=== PATIENT | male | born 1980 | race Caucasian/White ===

== ENCOUNTER 2019-03-22 00:12 | Emergency (ER) | payer SELFPAY ==
[~2019-03-22] VITALS: Ht 175.3 cm; Wt 95.2 kg
[~2019-03-22 00:12] MED LIST: FLOMAX0.4 MG PO; LEVAQUIN750 MG PO; NORCO 5-325 TA1 EACH PO; PERCOCET 5-3251 EACH PO
[2019-03-22] MEDS ORDERED: NORCO 5-325 TA1 EACH PO (00:42)
== END 2019-03-22 01:00 | disposition home or self-care (01) ==
LOC: ED 00:12
DX: H16.133 Photokeratitis, bilateral (principal)
CPT/HCPCS: 99283

== ENCOUNTER 2021-04-11 22:29 | Emergency (ER) | payer OTHER ==
[~2021-04-11] VITALS: Ht 175.3 cm; Wt 95.2 kg
[2021-04-12] MEDS ORDERED: DOXYCYCLINE HY100 MG PO (00:44)
[2021-04-12] MEDS ORDERED: HYDROCODON-ACE1 EA10 PO (00:44)
== END 2021-04-12 01:16 | disposition home or self-care (01) ==
LOC: ED 22:29
DX: T81.41XA Infection following a procedure, superficial incisional surgical site, initial encounter (principal); L08.9 Local infection of the skin and subcutaneous tissue, unspecified
CPT/HCPCS: 80053; 85025; 87070; 87077; 87186; 87205; 96365; 96375; 99283-25; J0696; J1170; J2405

== ENCOUNTER 2021-08-02 09:31 | Emergency (ER) | payer OTHER ==
[~2021-08-02] VITALS: Ht 175.3 cm; Wt 80.7 kg
[~2021-08-02 09:31] MED LIST changes: +DOXYCYCLINE HY100 MG PO; +HYDROCODON-ACE1 EA10 PO
[2021-08-02] MEDS ORDERED: CENTANY30 GM TOP (10:01)
[2021-08-02] MEDS ORDERED: BACTRIM DS TAB1 EACH PO (10:01)
== END 2021-08-02 10:08 | disposition home or self-care (01) ==
LOC: ED 09:31
DX: L73.9 Follicular disorder, unspecified (principal); Z79.899 Other long term (current) drug therapy
CPT/HCPCS: 99283

== ENCOUNTER 2021-10-30 03:16 | Emergency (ER) | payer OTHER ==
[~2021-10-30] VITALS: Ht 175.3 cm; Wt 80.7 kg
[~2021-10-30 03:16] MED LIST changes: +BACTRIM DS TAB1 EACH PO; +CENTANY30 GM TOP
== END 2021-10-30 05:35 | disposition home or self-care (01) ==
LOC: ED 03:16
DX: N20.0 Calculus of kidney (principal)
CPT/HCPCS: 74176; 80053; 81001; 83690; 85025; 99284-25

== ENCOUNTER 2021-11-22 14:09 | Emergency (ER) | payer OTHER ==
[~2021-11-22] VITALS: Ht 175.3 cm; Wt 80.7 kg
--- OUTSIDE RECORDS SUMMARY | 2021-11-22 14:12 | XMS ---
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 Gordy has no Care Guidelines for this patient. Olga VISIT COUNT (12 MO.) 4 [facility] [place] [facility]. TOTAL 4 NOTE: Visits indicate total known visits. ED/[facility] VISIT TRACKING (12 MO.) 11/22/2021 14:[address] [facility] [place] TYPE: Emergency COMPLAINT: - SHOULDER PAIN 10/30/2021 03:16 [facility] TYPE: Emergency COMPLAINT: - RIGHT SIDE ABD PAIN DIAGNOSES: - Right upper quadrant pain - Calculus of kidney 08/02/2021 09:31 [facility] [place] TYPE: Emergency COMPLAINT: - SKIN PROBLEM DIAGNOSES: - Other fdc (current) drug therapy - Other specified disorders of the skin and subcutaneous tissue - Other specified local infections of the skin and subcutaneous tissue - Follicular disorder, unspecified 04/11/2021 22:30 [facility] [place] TYPE: Emergency COMPLAINT: - RT ANKLE INFECTION DIAGNOSES: - Local infection of the skin and subcutaneous tissue, unspecified - Infection following a procedure, superficial incisional surgical site, initial encounter - Infection following a procedure, superficial incisional surgical site, initial encounter INPATIENT VISIT TRACKING (12 MO.) No inpatient visits to display in this time frame [email or web address]
[2021-11-22] MEDS ORDERED: HYDROCODON-ACE1 EA11 PO (16:16)
== END 2021-11-22 17:00 | disposition home or self-care (01) ==
LOC: ED 14:09
DX: S42.125A Nondisplaced fracture of acromial process, left shoulder, initial encounter for closed fracture (principal); V18.9XXA Unspecified pedal cyclist injured in noncollision transport accident in traffic accident, initial encounter
CPT/HCPCS: 73030; 99284-25; A9270

== ENCOUNTER 2022-04-27 03:21 | Emergency (ER) | payer OTHER ==
[~2022-04-27] VITALS: Ht 175.3 cm; Wt 78.5 kg
[~2022-04-27 03:21] MED LIST changes: +HYDROCODON-ACE1 EA11 PO
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
[2022-04-27] MEDS ORDERED: DOXYCYCLINE HY100 MG PO (03:46)
== END 2022-04-27 03:56 | disposition home or self-care (01) ==
LOC: ED 03:21
DX: L03.116 Cellulitis of left lower limb (principal); L03.115 Cellulitis of right lower limb
CPT/HCPCS: A9270